=== PATIENT | male | born 1960 | race Caucasian/White ===

== ENCOUNTER 2016-10-27 20:54 | Emergency (ER) | payer MEDICARE, OTHER ==
[~2016-10-27 20:54] MED LIST: ASPIRIN325 MG PO; BUSPIRONE HCL10 MG PO; HYDROXYZINE HCL25 MG PO; LISINOPRIL20 MG PO; NEURONTIN 400400 MG PO; NITROSTAT0.4 MG SL; PLAVIX 75 MG TA75 MG PO; PRAVASTATIN SOD40 MG PO; VENTOLIN HFA 66.7 GM INH
[2016-10-27 23:57] LABS: HEMOGLOBIN 15.8 gm/dl (14.0-17.5); RED BLOOD COUNT 5.26 M/UL (4.20-5.50); WHITE BLOOD COUNT 10.6 K/UL (4.5-11.0)
== END 2016-10-28 07:28 | disposition home or self-care (01) ==
LOC: ER1 20:54
PROVIDERS: Specialist/Technologist Athletic Trainer
DX: I95.9 Hypotension, unspecified (principal); N28.9 Disorder of kidney and ureter, unspecified; F19.10 Other psychoactive substance abuse, uncomplicated; R55 Syncope and collapse; I25.2 Old myocardial infarction; I10 Essential (primary) hypertension; F41.9 Anxiety disorder, unspecified; F17.200 Nicotine dependence, unspecified, uncomplicated; Z88.0 Allergy status to penicillin; Z79.02 Long term (current) use of antithrombotics/antiplatelets; Z79.82 Long term (current) use of aspirin; Z79.899 Other long term (current) drug therapy
CPT/HCPCS: 36415; 70450; 71010; 80053; 80307; 81001; 82550; 82553; 84484; 85025; 93005; 96361; 96374; 99284; J2060

== ENCOUNTER → 2016-11-18 | Outpatient (CLI) | payer MEDICARE, OTHER | LOC: EXRD 14:01 | DX: M54.5 Low back pain (principal); M54.2 Cervicalgia; Z98.1 Arthrodesis status; M47.816 Spondylosis without myelopathy or radiculopathy, lumbar region | CPT/HCPCS: 72050; 72100 ==

== ENCOUNTER → 2020-07-10 | Outpatient (CLI) | payer MEDICARE, OTHER | LOC: KOH-I 07-08 13:30 | DX: M54.5 Low back pain (principal); M54.2 Cervicalgia; I10 Essential (primary) hypertension; E78.5 Hyperlipidemia, unspecified; E11.9 Type 2 diabetes mellitus without complications; M25.552 Pain in left hip; M25.551 Pain in right hip; R53.83 Other fatigue; M43.12 Spondylolisthesis, cervical region; M51.36 Other intervertebral disc degeneration, lumbar region; F17.210 Nicotine dependence, cigarettes, uncomplicated | CPT/HCPCS: 72050; 72110; 73522; G0297 ==

== ENCOUNTER → 2020-09-16 | Outpatient (CLI) | payer MEDICARE, OTHER | LOC: LAB 07:50 | DX: I10 Essential (primary) hypertension (principal); R53.83 Other fatigue; E78.5 Hyperlipidemia, unspecified; E55.9 Vitamin D deficiency, unspecified; D51.9 Vitamin B12 deficiency anemia, unspecified; R73.09 Other abnormal glucose | CPT/HCPCS: 36415 ==

== ENCOUNTER → 2021-11-11 | Outpatient (CLI) | payer MEDICARE, OTHER | LOC: RAD 07:02 | DX: R06.00 Dyspnea, unspecified (principal); R20.0 Anesthesia of skin; R42 Dizziness and giddiness; M25.559 Pain in unspecified hip; M47.816 Spondylosis without myelopathy or radiculopathy, lumbar region | CPT/HCPCS: 71046; 72072; 72110; 73522 ==

== ENCOUNTER → 2021-11-22 | Outpatient (CLI) | payer MEDICARE, OTHER | LOC: RAD 10:54 | DX: M54.2 Cervicalgia (principal); M47.812 Spondylosis without myelopathy or radiculopathy, cervical region | CPT/HCPCS: 72050 ==

== ENCOUNTER 2022-01-08 13:58 | Emergency (ER) | payer MEDICARE, OTHER | END 2022-01-08 14:12 | disposition left against medical advice (07) | LOC: ER1 13:58 | DX: Z53.21 Procedure and treatment not carried out due to patient leaving prior to being seen by health care provider (principal) | CPT/HCPCS: 93005 ==

== ENCOUNTER → 2022-03-11 | Outpatient (CLI) | payer MEDICARE, OTHER | LOC: RAD 07:40 | DX: M54.40 Lumbago with sciatica, unspecified side (principal); M47.814 Spondylosis without myelopathy or radiculopathy, thoracic region; M47.816 Spondylosis without myelopathy or radiculopathy, lumbar region | CPT/HCPCS: 72072; 72110 ==